=== PATIENT | female | born 1940 | race Caucasian/White ===

== ENCOUNTER 2018-01-25 16:58 | Emergency (ER) | payer MEDICARE ==
[2018-01-25 17:05] VITALS: BP 162/85
[2018-01-25] MEDS ORDERED: LACT10SO PO (17:45)
== END 2018-01-25 17:52 | disposition home or self-care (01) ==
LOC: ER 16:59
DX: R42 Dizziness and giddiness (principal); R55 Syncope and collapse; R91.1 Solitary pulmonary nodule; Z79.899 Other long term (current) drug therapy
CPT/HCPCS: 71045; 99283

== ENCOUNTER 2018-05-09 11:55 | Emergency (ER) | payer MEDICARE ==
[~2018-05-09] VITALS: Ht 172.7 cm; Wt 62.7 kg
[~2018-05-09 11:55] MED LIST: LACT10SO PO
[2018-05-09] MEDS ORDERED: traMADol 50MG tablet PO ONE (12:50)
[2018-05-09] MEDS ORDERED: TRAM50TA2 PO (13:30)
[2018-05-09 13:58] VITALS: BP 146/41
== END 2018-05-09 13:59 | disposition home or self-care (01) ==
LOC: ER 11:55
DX: S00.83XA Contusion of other part of head, initial encounter (principal); M79.601 Pain in right arm; M25.511 Pain in right shoulder; W06.XXXA Fall from bed, initial encounter; Y93.89 Activity, other specified; Y92.89 Other specified places as the place of occurrence of the external cause; Y99.9 Unspecified external cause status
CPT/HCPCS: 73030; 73060; 99284